=== PATIENT | female | born 1950 | race African-American/Black ===

== ENCOUNTER 2019-03-06 10:13 | Emergency (ER) | payer BC ==
[2019-03-06 10:20] VITALS: BP 129/66; PULSE 63; TEMP 98.1; BMI 29.2
--- NOTE | 2019-03-06 11:38 | PDOC ---
History of Present Illness - General Chief Complaint: Back Pain Stated Complaint: LOWER BACK PAIN Time Seen by Provider: 03/06/19 11:16 History Source: Patient Exam Limitations: No Limitations - History of Present Illness Initial Comments: 03/06/19 11:39 CHIEF COMPLAINT: Lower back pain HISTORY OF PRESENT ILLNESS: This 68-year-old woman without significant medical history presents emergency department for evaluation of lower back pain radiating to bilateral lower extremity status post fall from step ladder. Patient reports she was standing on a stepladder this approximately 8 inches high when she tried to step off the lateral lost her balance falling down onto her left side. Patient was able to get up and ambulate immediately. Patient's employer sent to the hospital for evaluation as patient was experiencing some tingling in her lower extremities. Patient denies any incontinence of bladder or bowel, urinary retention, saddle anesthesia, foot drop, history of IV drug use or cancer. REVIEW OF SYSTEMS: GENERAL: Afebrile, denies any weakness RESPIRATORY: No cough, wheezing, or hemoptysis. CARDIAC: No chest pain or shortness of breath MUSCULOSKELETAL: Pain to generalized lower back. No point tenderness. Pain worse on left than right. SKIN : No erythema, no bruising, no deformity. GI/: Denies any abdominal pain, no urinary difficulty, incontinence or urinary retention. RECTAL: Denies any difficulty this A.m. NEUROLOGICAL: Denies any numbness or tingling. No neurosensory deficits. PHYSICAL EXAM: GENERAL: The patient is awake, alert, and fully oriented, in no acute distress. RESPIRATORY: Lungs clear bilaterally, no rhonchi wheezes or crackles CARDIAC: S1-S2 audible, no murmur rub or gallop MUSCULOSKELETAL: Pain to generalized lower back, nonradiating, no tingling or sensory deficit. Less than 2 second cap refill, +2 pedal pulses. No spinal point tenderness. Normal reflexive and no deficits to sensation or strength. GI/: Abdomen soft, nontender, nondistended. No rebound tenderness. No masses palpable. RECTAL: Deferred patient with no neurological findings SKIN: Warm, Dry. Abrasion to left elbow. 03/07/19 08:21 Past History - Past Medical History Allergies/Adverse Reactions: Allergies Allergy/AdvReac Type Severity Reaction Status Date / Time No Known Drug Allergies Allergy Verified 03/06/19 10:16 Home Medications: Ambulatory Orders Aspirin [ASA -] 81 mg PO DAILY 03/06/19 Fluticasone Propionate [Flovent Diskus] 50 mcg IH DAILY 03/06/19 Tiotropium Br/Olodaterol HCl [Stiolto Respimat Inhal [place]] 1 puff IH DAILY Anemia: No Asthma: Yes (MILD) Cancer: Yes (left breast - radiation tx) Cardiac Disorders: No CVA: No COPD: Yes CHF: No Dementia: No Diabetes: No GI Disorders: No Disorders: No HTN: No Hypercholesterolemia: No Liver Disease: No Seizures: No Thyroid Disease: No - Surgical History Abdominal Surgery: No Appendectomy: No Cardiac Surgery: No Cholecystectomy: No Lung Surgery: No Neurologic Surgery: No Orthopedic Surgery: No - Immunization History Immunization Up to Date: Yes - Suicide/Smoking/Psychosocial Hx Smoking History: Former smoker Have you smoked in the past 12 months: No If you are a former smoker, when did you quit?: 2009 Information on smoking cessation initiated: No Hx Alcohol Use: No Drug/Substance Use Hx: No Substance Use Type: Marijuana Hx Substance Use Treatment: No *Physical Exam - Vital Signs Last Vital Signs Temp Pulse Resp BP Pulse Ox 98.1 F 63 18 129/66 98 03/06/19 10:17 03/06/19 10:17 03/06/19 10:17 03/06/19 10:17 03/06/19 10:17 ED Treatment Course - RADIOLOGY Radiology Studies Ordered: Category Date Time Status LUMBAR SPINE CT W/O CONTRAST [CT] Stat CT Scan 03/06/19 11:25 Ordered Medical Decision Making - Medical Decision Making 03/06/19 11:41 A/P: 68-year-old woman with lower back pain status post fall No spinal point tenderness No pelvic instability. Full sensation distal to injury Strength 5/5 bilateral lower extremities This patient is osteoporotic from CAT scan to rule out fracture given traumatic nature of the injury Reassess 03/06/19 13:01 CT as read by Dr. Sotelo: Minimal anterolisthesis of L4 over L5, likely degenerative Multilevel mild disc bulge significant bilateral facet hypertrophy possibly slightly impinging the right L3 nerve root at L3-L4 level resolving and mild degenerative central spinal canal stenosis at L4-L5 level and impingement of the left L5 nerve root at L5-S1 level. Few diverticula and visualized portion of the mid sigmoid colon without evidence of acute diverticulitis. We'll discharge the patient home with instructions to follow-up with her primary doctor for reevaluation. *DC/Admit/Observation/Transfer Diagnosis at time of Disposition: Bulging of intervertebral disc between L4 and L5 - Discharge Dispostion Disposition: HOME Condition at time of disposition: Stable Decision to Admit order: No - Referrals Referrals: Hermilo Baum MD [Primary Care Provider] - - Patient Instructions Printed Discharge Instructions: Herniated Disc Additional Instructions: Follow-up to primary doctor for continued evaluation. Return to emergency department for any numbness or tingling to genitals, backside or of either leg, or for any other new or worsening symptoms. - Post Discharge Activity Forms/Work/School Notes: Back to Work
== END 2019-03-06 13:09 | disposition home or self-care (01) ==
LOC: JERFT 10:13
DX: M51.26 Other intervertebral disc displacement, lumbar region (principal); W11.XXXA Fall on and from ladder, initial encounter; Y93.89 Activity, other specified; Y92.59 Other trade areas as the place of occurrence of the external cause; Y99.0 Civilian activity done for income or pay
CPT/HCPCS: 72131-TC; 99281-25

== ENCOUNTER 2020-05-18 17:23 | Emergency (ER) | payer BC ==
--- NOTE | 2020-05-18 17:27 | PDOC ---
Rapid Medical Evaluation Chief Complaint: Pain, Acute Time Seen by Provider: 05/18/20 17:25 Medical Evaluation: Allergies Allergy/AdvReac Type Severity Reaction Status Date / Time No Known Drug Allergies Allergy Verified 03/06/19 10:16 05/18/20 17:25 CC: twisted ankle this am Exam: general tenderness to rt ankle, amb with limp Plan: xray ankle Discharge Disposition - Diagnosis Ankle injury - Discharge Dispostion Condition at time of disposition: Stable - Referrals - Patient Instructions - Post Discharge Activity
[2020-05-18 17:28] VITALS: BP 151/71; PULSE 84; TEMP 98.6; BMI 36.3
[2020-05-18] MEDS ORDERED: IBUPROFEN 600 MG TABLET (FP) PO ONE ×2 (17:45→17:46)
--- NOTE | 2020-05-18 17:48 | PDOC ---
History of Present Illness - General Chief Complaint: Pain, Acute Stated Complaint: RT FOOT PAIN Time Seen by Provider: 05/18/20 17:25 History Source: Patient Exam Limitations: Clinical Condition - History of Present Illness Initial Comments: 05/18/20 17:48 Patient with no significant past medical history present with complaint of pain to the dorsum of proximal right foot and lateral aspect of right ankle status post stepping on a curbside this morning and twisting right ankle. Patient reported did not feel any pain when injury happened also over 2 hours ago when she started feeling pain to the ankle and foot. Reported increased pain with ambulation. Denies fall from injury. Patient did not take anything for pain. Denies any other symptoms Occurred: reports: this morning Past History - Medical History Allergies/Adverse Reactions: Allergies Allergy/AdvReac Type Severity Reaction Status Date / Time No Known Drug Allergies Allergy Verified 05/18/20 17:45 Home Medications: Ambulatory Orders Aspirin [ASA -] 81 mg PO DAILY 03/06/19 Fluticasone Propionate [Flovent Diskus] 50 mcg IH DAILY 03/06/19 Tiotropium Br/Olodaterol HCl [Stiolto Respimat Inhal [place]] 1 puff IH DAILY 03/06/19 Ibuprofen 600 mg PO Q8H PRN #16 tablet 05/18/20 Anemia: No Asthma: Yes (MILD) Cancer: Yes (left breast - radiation tx) Cardiac Disorders: No CVA: No COPD: Yes CHF: No Dementia: No Diabetes: No GI Disorders: No Disorders: No HTN: No Hypercholesterolemia: No Liver Disease: No Seizures: No Thyroid Disease: No - Surgical History Abdominal Surgery: No Appendectomy: No Cardiac Surgery: No Cholecystectomy: No Lung Surgery: No Neurologic Surgery: No Orthopedic Surgery: No - Immunization History Immunization Up to Date: Yes - Psycho-Social/Smoking History Smoking History: Never smoked Have you smoked in the past 12 months: No If you are a former smoker, when did you quit?: 2009 Information on smoking cessation initiated: No - Substance Abuse Hx (Audit-C & DAST Scrn) How often the patient has a drink containing alcohol: Never Score: In Men: 4 or > Positive; In Women: 3 or > Positive: 0 Screen Result (Pos requires Nsg. Audit-10AR): Negative In the last yr the pt used illegal drug/Rx for NonMed reason: No Score: Yes response is considered Positive: 0 Screen Result (Positive result requires Nsg. DAST-10): Negative Review of Systems - Review of Systems Able to Perform ROS?: Yes Is the patient limited [place] proficient: No Constitutional: No: Chills, Fever, Malaise HEENTM: No: Symptoms Reported, See HPI, Eye Pain, Blurred Vision, Tearing, Recent change in vision, Double Vision, Cataracts, Ear Pain, Ocular Prothesis, Ear Discharge, Nose Pain, Nose Congestion, Tinnitus, Nose Bleeding, Hearing Loss, Throat Pain, Throat Swelling, Mouth Pain, Dental Problems, Difficulty Swallowing, Mouth Swelling, Other Respiratory: No: Symptoms reported, See HPI, Cough, Orthopnea, Shortness of Breath, SOB with Exertion, SOB at Rest, Stridor, Wheezing, Productive cough, Hemoptysis, Other Cardiac (ROS): No: Symptoms Reported Musculoskeletal: Yes: Symptoms Reported, See HPI, Joint Pain (Right ankle pain), Joint Swelling (Lateral aspect of right ankle), Muscle Pain (Pain to bottom of right foot and lateral of right ankle) Integumentary: No: Symptoms Reported, Other Neurological: No: Numbness, Paresthesia, Tingling, Weakness All Other Systems: Reviewed and Negative *Physical Exam - Vital Signs Last Vital Signs Temp Pulse Resp BP Pulse Ox 98.6 F 84 16 151/71 98 05/18/20 17:25 05/18/20 17:25 05/18/20 17:25 05/18/20 17:25 05/18/20 17:25 - Physical Exam 05/18/20 17:51 GENERAL: Well developed, well nourished. Awake and alert in mild acute distress. PULMONARY: No evidence of respiratory distress. MUSCULOSKELETAL : mild tenderness over lateral malleolus of right ankle and proximal dorsum of right foot. Mild localized swelling over lateral malleoli of right ankle and proximal foot. No bony deformities SKIN: Warm and dry. Normal capillary refill. Mild localized swelling to lateral aspect of right ankle and proximal foot. No bruising or skin erythema. NEUROLOGICAL: Alert, awake, appropriate. No motor deficits in the lower extremities. Gait is normal without ataxia. PSYCHIATRIC: Cooperative. Good eye contact. Appropriate mood and affect. General Appearance: Yes: Nourished, Appropriately Dressed, Mild Distress Medical Decision Making - Medical Decision Making 05/18/20 17:49 Patient with no significant past medical history present with complaint of pain to the dorsum of proximal right foot and lateral aspect of right ankle status post stepping on a curbside this morning and twisting right ankle. Patient reported did not feel any pain when injury happened also over 2 hours ago when she started feeling pain to the ankle and foot. Reported increased pain with ambulation. Denies fall from injury. Patient did not take anything for pain. Denies any other symptoms Exam significant for mild localized swelling to lateral malleolus of right ankle with mild tenderness to proximal dorsum of right foot with no visible swelling to foot. Negative anterior and posterior drawer test of right ankle. No tenderness to medial aspect of right ankle. X-ray of right ankle shows no acute fracture or abnormality. Symptoms likely from ankle and foot sprain. Ibuprofen 600 mg p.o. ordered for pain. Right ankle and foot wrapped with Rios bandage and Aircast ankle support brace applied to ankle. Postop shoe given to patient to help pressure on bottom of foot. Patient stable for discharge on Motrin PRN for pain with advised to do cold compress today and switch to hot compress tomorrow as needed for pain with elevation of right leg and orthopedics follow-up as needed. Patient stable for discharge Discharge - Discharge Information Problems reviewed: Yes Clinical Impression/Diagnosis: Ankle injury Qualifiers: Encounter type: initial encounter Laterality: right Qualified Code(s): S99.911A - Unspecified injury of right ankle, initial encounter Right foot sprain Qualifiers: Encounter type: initial encounter Qualified Code(s): S93.601A - Unspecified sprain of right foot, initial encounter Condition: Stable Disposition: HOME - Admission No - Additional Discharge Information Prescriptions: Ibuprofen 600 mg PO Q8H PRN #16 tablet PRN Reason: pain - Follow up/Referral Referrals: Hermilo Baum MD [Primary Care Provider] - Merlin Francois DO [Staff Physician] - - Patient Discharge Instructions Patient Printed Discharge Instructions: DI for Ankle Sprain Additional Instructions: X-ray of the ankle shows no acute fracture or dislocation. Your pain is likely from sprain. Take prescribed Motrin as needed for sprain. Use provided Rios bandage and ankle support brace to help support ankle. Apply cold compress as needed for swelling and keep right leg elevated to help prevent swelling. Follow-up referred orthopedics as needed if no improvement in 4 days - Post Discharge Activity
== END 2020-05-18 17:52 | disposition home or self-care (01) ==
LOC: JERFT 17:23
DX: S93.601A Unspecified sprain of right foot, initial encounter (principal); X50.9XXA Other and unspecified overexertion or strenuous movements or postures, initial encounter
CPT/HCPCS: 73610-TC-RT-FY; 99283-25

== ENCOUNTER 2022-04-25 17:09 | Emergency (ER) | payer OTHER ==
[2022-04-25 17:30] VITALS: BP 162/96; PULSE 70; TEMP 98.2; BMI 32.2
[2022-04-25 19:53] LABS: BASO % 1.1 % (0-2.0); EOS % 1.4 % (0-4.5); HEMATOCRIT 42.7 % (32.4-45.2); HEMOGLOBIN 13.8 GM/dL (10.7-15.3); LYMPH % 26.3 % (8-40); MCH 29.4 pg (25.7-33.7); MCHC 32.4 g/dl (32.0-36.0); MEAN CELL VOLUME 90.8 fl (80-96); MEAN PLT VOLUME 8.9 fl (7.5-11.1); MONO % 7.2 % (3.8-10.2); PLATELET COUNT 286 10^3/uL (134-434); RDW 14.8 % (11.6-15.6); WHITE BLOOD COUNT 7.6 K/mm3 (4.0-10.0)
[2022-04-25 20:12] LABS: ALBUMIN 4.4 g/dl (3.4-5.0)
[2022-04-25 20:15] LABS: CREATININE 0.9 mg/dL (0.55-1.3)
[2022-04-25 20:17] LABS: BILIRUBIN,TOTAL 0.3 mg/dL (0.2-1); TOT PROT 7.7 g/dl (6.4-8.2)
== END 2022-04-25 22:40 | disposition home or self-care (01) ==
LOC: JER 17:09
DX: R42 Dizziness and giddiness (principal)
CPT/HCPCS: 36415; 80053; 82550; 82553; 84484; 85025; 93005; 93010; 99284-25